=== PATIENT | male | born 2000 | race Caucasian/White ===

== ENCOUNTER 2021-03-11 18:19 | Inpatient (IN) ==
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
[2021-03-11 20:29] LABS: Basophils # (auto) 0.02 K/uL (0-0.2); Basophils % (auto) 0.2 %; Eosinophils # (auto) 0.24 K/uL (0-0.5); Eosinophils % (auto) 2.3 %; Hematocrit (blood only) 40.6 % (42-52); Hemoglobin 14.3 g/dL (14.0-18.0); Immature Granulocytes # (auto) 0.01 K/uL (0.00-0.02); Immature Granulocytes % (auto) 0.1 %; Lymphocytes # (auto) 2.34 K/uL (1.2-3.4); Lymphocytes % (auto) 22.8 %; Mean Corpuscular Hemoglobin 29.3 pg (25-34); Mean Corpuscular Hgb Conc 35.2 g/dL (32-36); Mean Corpuscular Volume 83.2 fL (80-100); Mean Platelet Volume 9.7 fL (7.4-10.4); Monocytes # (auto) 0.78 K/uL (0.11-0.59); Monocytes % (auto) 7.6 %; Neutrophils # (auto) 6.87 K/uL (1.4-6.5); Platelet Count 268 K/uL (130-400); RDW Standard Deviation 42.6 fL (36.4-46.3); Red Blood Count 4.88 M/uL (4.7-6.1); White Blood Count 10.26 K/uL (4.8-10.8)
[2021-03-11 20:45] LABS: Alanine Aminotransferase 15 U/L (12-78); Albumin Level 3.8 gm/dl (3.4-5.0); Aspartate Aminotransferase 14 U/L (15-37); BUN Creatinine Ratio 16.6 (10-20); Blood Urea Nitrogen 13 mg/dl (7-18); Calcium 9.2 mg/dl (8.5-10.1); Carbon Dioxide 28 mmol/L (21-32); Chloride 106 mmol/L (98-107); Creatinine Clr Calc Pharmacy 171.8 ml/min; Est GFR (African American) > 150.0; Est GFR (Non-African American) 130.9; Glucose 101 mg/dl (70-99); Potassium 3.4 mmol/L (3.5-5.1); Sodium 139 mmol/L (136-145)
[2021-03-11 20:55] LABS: Alkaline Phosphatase 75 U/L (45-117); Bilirubin,Total 0.5 mg/dl (0.2-1); Globulin 3.6 gm/dl (2.5-4.0); Total Protein 7.4 gm/dl (6.4-8.2)
[2021-03-11 20:56] LABS: Acetaminophen < 2 ug/ml (10-30); Salicylate < 1.7 mg/dl (2.8-20)
[2021-03-11 21:12] LABS: Influenza A virus by PCR Negative (Neg); Influenza B virus by PCR Negative (Neg); RSV by PCR Negative (Neg); SARS CoV2 RNA(COVID-19) InHosp NEGATIVE (Negative)
[2021-03-11 21:48] LABS: Appearance Urine Clear (Clear); Bilirubin Urine Negative (Negative); Blood Urine Negative (Negative); Color Urine Yellow; Glucose Urine UA Negative (Negative); Ketones Urine Trace (Negative); Leukocyte Esterase Urine Negative (Negative); Nitrite Urine Negative (Negative); Protein Urine Negative (Negative); Specific Gravity Urine 1.025 (1.000-1.030); Urobilinogen Urine Negative (Negative)
[2021-03-11 22:13] LABS: Amphetamines+Metham, Urine Neg (Neg); Barbiturates, Urine Neg (Neg); Benzodiazepine, Urine Neg (Neg); Cocaine, Urine Neg (Neg); MDMA (Ecstacy), Urine Pos (Neg); Methadone, Urine Neg (Neg); Opiate, Urine Neg (Neg); Phencyclidine, Urine Neg (Neg)
[2021-03-11] MEDS ORDERED: PRAZOSIN HCL 1 MG CAP PO ONE (23:03)
[2021-03-11] MEDS ORDERED: MELATONIN 3 MG TAB PO ONE (23:03)
[2021-03-11] MEDS ORDERED: ARIPIprazole SOLN 10 MG/10 ML UDP PO STA (23:03)
[2021-03-11] MEDS ORDERED: AMOXICILLIN 500 MG CAP PO STA (23:03)
[2021-03-11] MEDS ORDERED: traZODone HCL 100 MG TAB PO ONE (23:04)
[2021-03-11] MEDS ORDERED: PANTOprazole 40 MG TAB PO SCH (23:15)
[2021-03-12] MEDS ORDERED: BISMUTH SUBSALICYLATE LIQD 236 ML PO PRN (03:39)
[2021-03-12] MEDS ORDERED: hydrOXYzine HCl 25 MG TAB PO PRN ×2 (03:39)
[2021-03-12] MEDS ORDERED: ALUMINUM/MAGNESIUM SUSP 30 ML UDC PO PRN (03:39)
[2021-03-12] MEDS ORDERED: SODIUM CHLORIDE 0.65% NA SOLN 45 ML (OCEAN) PRN (03:39)
[2021-03-12] MEDS ORDERED: MAGNESIUM HYDROXIDE SUSP 30 ML UDC PO PRN (03:39)
[2021-03-12] MEDS ORDERED: ACETAMINOPHEN 325 MG TAB PO PRN (03:39)
--- NOTE | 2021-03-12 03:59 | Emergency Department Note ---
ED Visit Note Patient signed out to me at change of shift from Dr. Tucker. Patient awaiting final disposition. Patient signed 201 and will be admitted to . .
[2021-03-12] MEDS ORDERED: BENZTROPINE MESYLATE 0.5 MG TAB PO PRN (04:24)
[2021-03-12] MEDS ORDERED: MELATONIN 3 MG TAB PO PRN (05:03)
[2021-03-12] MEDS ORDERED: NON-FORMULARY MEDICATION (Amoxicillin 500 mg tablet) PO SCH (09:00)
[2021-03-12] MEDS ORDERED: SERTRALINE HCL 100 MG TABLET PO SCH (09:00)
[2021-03-12] MEDS ORDERED: DEXMETHYLPHENIDATE 15 MG PO SCH (09:00)
[2021-03-12] MEDS: AMOXICILLIN 500 MG CAP PO SCH ×3 (11:05→20:46)
[2021-03-12] MEDS: SERTRALINE HCL 50 MG TABLET PO SCH (11:05)
[2021-03-12] MEDS: NICOTINE 14 MG/24 HR PATCH TD SCH (11:09)
--- NOTE | 2021-03-12 16:51 | History & Physical ---
Date of Service March 12, 2021 Impression / Recommendations Impression This is an 19-year-old male with a past psychiatric history of ADD, autism, substance-induced psychosis who presented with mood instability and suicidal ideation. (1) Substance induced mood disorder: The patient was admitted to the [facility] ([facility] unit) on q15 min checks (behavioral with suicide precautions) for safety. The patient will participate in group, recreational, and milieu therapies and will be offered additional individual and family sessions as clinically appropriate. The patient's marijuana use suggests problematic substance use. Brief intervention was offered and accepted. Intervention was greater than 5 min in length and included assessing readiness to quit, advice on how to reduce or abstain, and to set a specific goal for this hospitalization. social service worker will also assist in anticipating barriers to sobriety and in problem-solving for solutions to those problems while arranging for referral to appropriate treatment. The patient is in precontemplation stage with regards to transtheoretical model of change. The patient is advised to decrease consumption due to depressant effects and risk of interaction with prescription medications. The patient agreed to consider the option and will be provided with recovery materials to continue to educate self on how to cope with their condition without abusing substances. Marijuana held Focalin held Continue Abilify 10 mg p.o. daily Continue Zoloft 150 mg daily Continue trazodone nightly (2) Suicidal ideations: 03/12/21--patient states that these are resolved after having spent some time on the unit and having gone to group therapy. Unclear what causes these ideations to come and go, will continue to work with patient on identifying triggers. Focalin discontinued Inventory Assets Strengths: supportive family Needs: stability sobriety Risk Factors Assessment Do You Have Access To A Gun?: No Protective Factors Assessment Employed: No Psychiatric History Identifying Data ROZINA OGDEN is a 20-year-old M who currently [place] his mother, has a history of ADD, Autism, Substance induced psychosis, and was admitted on 03/12/21 03:39 on a 201 voluntary commitment for suicidal ideation. Chief Complaint "I was having some suicidal thoughts". History of Present Illness Patient is a 20-year-old male with a past psychiatric history of ADD, autism, substance-induced psychosis, who presents to the emergency department with suicidal ideation. Patient is unable to identify any specific trigger for his suicidal ideation, rather states that he became upset last night and did not know what to do. Furthermore patient unable to state what he is upset about, but lists off losses of family members as a potential reason. Patient states that he lost a [id number] in a car accident approximately 1 month ago as well as losing both of his grandparents approximately 8 years ago. Patient unable to rectify why these losses caused him to feel suicidal. States that in the past he has felt suicidal for unknown reasons. Today, patient reports feeling somewhat improved. He states that his mood is still not where it should be as he has fluctuations in mood swings. He states that often times he will become angry and he is unsure as to why that is. Patient acknowledges previous hallucinations but is denying any current hallucinations at this time. Patient is denying any other psychotic symptoms. he is endorsing smoking large quantities of marijuana which he states helps him with his mood. Patient denies any other substance abuse at this time. Past Psychiatric History Previous Psych History: Patient states that he has been in 20 previous psychiatric inpatient hospitals. Patient states that these hospitalizations are typically in the context of suicidal ideation. Patient has also had multiple med trials both inpatient and outpatient basis. Current Psychiatric Diagnosis: Major Depression Recurrent Outpatient Services: Currently attending outpatient psych services Previous Psych Admissions: 20 Do You Have Access To A Gun?: No History of Previous Suicide Attempt: Yes Describe Attempts in the Past: prior attempts to OD on medical THC, drown self in toilet, hang self Past Medication Trials: Patient reports multiple past medication trials. Reports adverse and poor reaction to Vyvanse medication in the past. Allergies Allergy/AdvReac Type Severity Reaction Status Date / Time bupropion [From Wellbutrin] Allergy Severe seizures Verified 03/11/21 22:28 Home Medications Medication Instructions Recorded Confirmed Type prazosin 1 mg capsule 1 mg PO QPM 09/06/19 03/11/21 History prazosin 2 mg capsule 2 mg PO QPM 09/06/19 03/11/21 History pantoprazole 40 mg tablet,delayed 40 mg PO BID #180 tab 03/21/20 03/11/21 Rx release benztropine 0.5 mg tablet 0.5 mg PO QAM PRN 06/24/20 03/11/21 History dexmethylphenidate 15 mg 25 mg PO QAM 06/24/20 03/11/21 History capsule,extended release [id number] melatonin 10 mg tablet 10 mg PO HS tab 06/24/20 03/11/21 History sertraline 100 mg tablet 150 mg PO QAM tab 06/24/20 03/11/21 History Linzess 145 mcg PO DAILY PRN 10/09/20 03/11/21 History mesalamine 2 g NJ BID PRN 10/09/20 03/11/21 History mesalamine 0.375 gram 1.5 g PO QAM #120 cap 01/29/21 03/11/21 Rx capsule,extended release 24 hr aripiprazole 10 mg tablet 10 mg PO QPM tab 02/12/21 03/11/21 History amoxicillin 500 mg PO TID 03/11/21 03/11/21 History trazodone 200 mg PO HS 03/11/21 03/11/21 History Family History Family History of: Other-List under Comment Family Mental Health History Comment: Doesn't believe there is Alcohol History Hx of Alcohol Use Over the Past 12 Months: No Smoking Use Have You Smoked or Used Tobacco Products in the Last 30 Days: Yes tobacco type: cigarettes Smoking Status: Current every day smoker Smoking packs per day: 0.5 Substance History Hx of Prescription Med Misuse Over the Past 12 Months: No Hx of Over the Counter Med Misuse Over the Past 12 Months: No Hx of Inhalent Misuse Over the Past 12 Months: No Hx of Organic Substance Use Over the Past 12 Months: Yes (Medical Marijuana - "use too much some times") Hx of Illegal Substances/Street Drug Use Over Past 12 Months: No Problems as a Result of Past Substance Use: Sustained Bodily Harm Personal History Living Arrangements: Home Highest Grade Completed: High School Graduate Highest Grade Completed Comment: [employer] Beliefs That Will Affect Care: None Patient History Medical History Acne ADHD Anxiety Autism spectrum disorder Chronic constipation Depression GERD (gastroesophageal reflux disease) Psychosis PTSD (post-traumatic stress disorder) Rectal bleeding Seizure Stomach ulcer Tobacco use Surgical History History of colonoscopy (~04/04/20) History of esophagogastroduodenoscopy (EGD) (~01/09/20) Hx of oral surgery Status post surgery Family History Father Drug abuse Alcohol abuse Mother Drug abuse Alcohol abuse Depression Seizures Grandmother (Maternal) Diabetes Other No family history of adverse response to anesthesia Denies family history of Ovarian cancer Prostate cancer Myocardial infarction Breast cancer Colorectal cancer Social History Smoking Status: Current every day smoker Tobacco Type: Cigarettes Age Started Using Tobacco: 17; packs per day: 0.5; Cigarettes Per Day: 1/2 PPD; Second Hand Exposure: No; Hx Alcohol Use: No Hx Substance Use: Yes (medical marijuana) Preferred Language: [place] Communication Ability: Effective Visual Impairment: No Limitations 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 Beliefs That Will Affect Care: None marital status: Single Current Living Situation: Family Current Living Situation Comment: lives with mom current occupational status: employed current occupation: [employer] Feels Safe at Home: Yes caffeine: Yes during the past year weight has: remained stable Dental Care, Regularly: Yes Physical Activity Frequency: Does not Exercise Seatbelt Use: always Sunscreen Use: Yes Assistive Devices: Glasses Review of Systems Review of Systems: All systems reviewed & are unremarkable except as noted in HPI & below Physical Exam Psychiatric: Orientation: alert, oriented to person and oriented to place Apperance: + disheveled Eye Contact: + fair eye contact Motor Behavior: s teady gait and station Speech: normal rate/rhythm/volume of speech Affect: + labile affect Mood: no dysphoric mood Thought Process: goal directed thought process Thought Content: + preoccupation Suicidal Thoughts: denies suicidal thoughts Homicidal Thoughts: denies homicidal thoughts Hallucinations: no auditory hallucinations Cognition: remote memory grossly intact Estimated Intelligence: + below average estimated intelligence Insight: + limited insight Judgement: + limited judgement Vital Signs (Past 24 Hours): Last Vital Signs Temp 36.9 C 03/12/21 04:47 Pulse 92 H 03/12/21 04:47 Resp 16 03/12/21 04:47 BP 118/73 03/12/21 04:47 Pulse Ox 100 03/11/21 22:48 Exam Statement: A physical exam was performed in the ER prior to admission to the unit by Dr. Jeong. I accept that physical as correct/medical clearance for the inpatient physical exam. Results & Data (U) Laboratory Results Laboratory Results - last 24 hr 03/11/21 03/11/2103/11/21 19:15 19:15 19:15 WBC RBC Hgb Hct MCV MCH MCHC RDW Std Deviation RDW Coeff of Sonia Plt Count MPV Immature Gran % (Auto) Neut % (Auto) Lymph % (Auto) Mcpherson % (Auto) Eos % (Auto) Baso % (Auto) Neut # (Auto) Lymph # (Auto) Mcpherson # (Auto) Eos # (Auto) Baso # (Auto) Immature Gran # (Auto) Sodium Potassium Chloride Carbon Dioxide Anion Gap BUN Creatinine Est Cr Clr Drug Dosing Est GFR ( Amer) Est GFR (Non-Af Amer) BUN/Creatinine Ratio Glucose Calcium Total Bilirubin AST ALT Alkaline Phosphatase Total Protein Albumin Globulin Albumin/Globulin Ratio TSH Urine Color Yellow Urine Appearance Clear Urine pH 7.0 Ur Specific [place] 1.025 Urine Protein Negative Urine Glucose (UA) Negative Urine Ketones Trace H Urine Blood Negative Urine Nitrite Negative Urine Bilirubin Negative Urine Urobilinogen Negative Ur Leukocyte Esterase Negative Salicylates Urine Opiates Screen Neg Ur Methadone, Qual Neg Acetaminophen Urine Barbiturates Neg Ur Phencyclidine (PCP) Neg U Amphetamin/Meth Scrn Neg Urine MDEA Pending MDMA (Ecstasy) Screen Pos H MDMA Pending Urine MDMA Pending U Benzodiazepines Scrn Neg Ur Cocaine Metabolite Neg U Marijuana (THC) Screen Pos H U Marijuana THC Carboxy Pending Ethyl Alcohol mg/dL COVID-19 Eval Order SARS-CoV-2 (PCR) Influenza Type A (PCR) Influenza Type B (PCR) RSV (RT-PCR) 03/11/21 03/11/21 03/11/21 20:09 20:09 20:09 WBC 10.26 RBC 4.88 Hgb 14.3 Hct 40.6 L MCV 83.2 MCH 29.3 MCHC 35.2 RDW Std Deviation 42.6 RDW Coeff of Sonia 14.0 Plt Count 268 MPV 9.7 Immature Gran % (Auto) 0.1 Neut % (Auto) 67.0 Lymph % (Auto) 22.8 Mcpherson % (Auto) 7.6 Eos % (Auto) 2.3 Baso % (Auto) 0.2 Neut # (Auto) 6.87 H Lymph # (Auto) 2.34 Mcpherson # (Auto) 0.78 H Eos # (Auto) 0.24 Baso # (Auto) 0.02 Immature Gran # (Auto) 0.01 Sodium 139 Potassium 3.4 L Chloride 106 Carbon Dioxide 28 Anion Gap 5.0 BUN 13 Creatinine 0.78 Est Cr Clr Drug Dosing 171.8 Est GFR ( Amer) > 150.0 Est GFR (Non-Af Amer) 130.9 BUN/Creatinine Ratio 16.6 Glucose 101 H Calcium 9.2 Total Bilirubin 0.5 AST 14 L ALT 15 Alkaline Phosphatase 75 Total Protein 7.4 Albumin 3.8 Globulin 3.6 Albumin/Globulin Ratio 1.0 TSH 1.300 Urine Color Urine Appearance Urine pH Ur Specific [place] Urine Protein Urine Glucose (UA) Urine Ketones Urine Blood Urine Nitrite Urine Bilirubin Urine Urobilinogen Ur Leukocyte Esterase Salicylates < 1.7 L Urine Opiates Screen Ur Methadone, Qual Acetaminophen < 2 L Urine Barbiturates Ur Phencyclidine (PCP) U Amphetamin/Meth Scrn Urine MDEA MDMA (Ecstasy) Screen MDMA Urine MDMA U Benzodiazepines Scrn Ur Cocaine Metabolite U Marijuana (THC) Screen U Marijuana THC Carboxy Ethyl Alcohol mg/dL COVID-19 Eval Order SARS-CoV-2 (PCR) Influenza Type A (PCR) Influenza Type B (PCR) RSV (RT-PCR) 03/11/21 03/11/21 03/11/21 20:09 20:22 20:22 WBC RBC Hgb Hct MCV MCH MCHC RDW Std Deviation RDW Coeff of Sonia Plt Count MPV Immature Gran % (Auto) Neut % (Auto) Lymph % (Auto) [place]pher[place] % (Auto) Eos % (Auto) Baso % (Auto) Neut # (Auto) Lymph # (Auto) [place] # (Auto) Eos # (Auto) Baso # (Auto) Immature Gran # (Auto) Sodium Potassium Chloride Carbon Dioxide Anion Gap BUN Creatinine Est Cr Clr Drug Dosing Est GFR ( Amer) Est GFR (Non-Af Amer) BUN/Creatinine Ratio Glucose Calcium Total Bilirubin AST ALT Alkaline Phosphatase Total Protein Albumin Globulin Albumin/Globulin Ratio TSH Urine Color Urine Appearance Urine pH Ur Specific [place] Urine Protein Urine Glucose (UA) Urine Ketones Urine Blood Urine Nitrite Urine Bilirubin Urine Urobilinogen Ur Leukocyte Esterase Salicylates Urine Opiates Screen Ur Methadone, Qual Acetaminophen Urine Barbiturates Ur Phencyclidine (PCP) U Amphetamin/Meth Scrn Urine MDEA MDMA (Ecstasy) Screen MDMA Urine MDMA U Benzodiazepines Scrn Ur Cocaine Metabolite U Marijuana (THC) Screen U Marijuana THC Carboxy Ethyl Alcohol mg/dL < 3.0 COVID-19 Eval Order CovFluRsv at [facility] SARS-CoV-2 (PCR) NEGATIVE Influenza Type A (PCR) Negative Influenza Type B (PCR) Negative RSV (RT-PCR) Negative Current Inpatient Medications Current Inpatient Medications: Current Inpatient Medications Acetaminophen (Acetaminophen 325 Mg Tab) 650 mg PO Q4H PRN PRN Reason: Headache or Minor Fever Stop: 04/11/21 03:38 Al Hydrox/Mg Hydrox/Simethicone (Aluminum/Magnesium Susp 30 Ml Udc) 30 ml PO Q4H PRN PRN Reason: GI Upset Stop: 04/11/21 03:38 Amoxicillin (Amoxicillin 500 Mg Cap) 500 mg PO TID MONIQUE Stop: 03/14/21 08:59 Last Admin: 03/12/21 14:40 Dose: 500 mg Documented by: Aripiprazole (Aripiprazole 10 Mg Tab) 10 mg PO HS MONIQUE Stop: 04/11/21 21:59 Benztropine Mesylate (Benztropine Mesylate 0.5 Mg Tab) 0.5 mg PO DAILY PRN PRN Reason: EPS Stop: 04/11/21 04:23 Bismuth Subsalicylate (Bismuth Subsalicylate Liqd 236 Ml) 15 ml PO PRN PRN PRN Reason: Loose Stool Stop: 04/11/21 03:38 Hydroxyzine HCl (Hydroxyzine Hcl 25 Mg Tab) 50 mg PO HSZ PRN PRN Reason: Insomnia Stop: 04/11/21 03:38 Hydroxyzine HCl (Hydroxyzine Hcl 25 Mg Tab) 25 mg PO Q4H PRN PRN Reason: Anxiety Stop: 04/11/21 03:38 Magnesium Hydroxide (Magnesium Hydroxide Susp 30 Ml Udc) 30 ml PO DAILY PRN PRN Reason: Constipation Stop: 04/11/21 03:38 Melatonin (Melatonin 3 Mg Tab) 10 mg PO HS PRN PRN Reason: Sleep Stop: 04/11/21 05:02 Miscellaneous (Remove Nicoderm Patch) 1 ea N/A DAILY@0859 [facility] Stop: 04/11/21 08:58 Last Admin: 03/12/21 11:08 Dose: Not Given Documented by: Miscellaneous (Mesalamine~Order Awaiting Action) 1 ea N/A QS [facility] Stop: 04/11/21 07:59 Last Admin: 03/12/21 10:16 Dose: Not Given Documented by: Nicotine (Nicotine 14 Mg/24 Hr Patch) 14 mg TD [facility] Stop: 04/11/21 08:59 Last Admin: 03/12/21 11:09 Dose: 14 mg Documented by: Prazosin HCl (Prazosin Hcl 1 Mg Cap) 3 mg PO [facility] Stop: 04/11/21 21:59 Sertraline HCl (Sertraline Hcl 50 Mg Tablet) 150 mg PO [facility] Stop: 04/11/21 08:59 Last Admin: 03/12/21 11:05 Dose: 150 mg Documented by: Sodium Chloride (Sodium Chloride 0.65% Na Soln 45 Ml ([place])) 1 - 2 sprays NA PRN PRN PRN Reason: Nasal Dryness/Congestion Stop: 04/11/21 03:38 Trazodone HCl (Trazodone Hcl 100 Mg Tab) 200 mg PO [facility] Stop: 04/11/21 21:59
[2021-03-12] MEDS: ARIPiprazole 10 MG TAB PO SCH (20:46)
[2021-03-12] MEDS: PRAZOSIN HCL 1 MG CAP PO SCH (20:46)
[2021-03-12] MEDS: traZODone HCL 100 MG TAB PO SCH (20:47)
[2021-03-12] MEDS ORDERED: ARIPiprazole 10 MG TAB PO SCH (21:00)
[2021-03-12] MEDS ORDERED: traZODone HCL 100 MG TAB PO SCH (21:00)
[2021-03-12] MEDS ORDERED: PRAZOSIN HCL 1 MG CAP PO SCH ×2 (21:00)
[2021-03-13] MEDS: SERTRALINE HCL 50 MG TABLET PO SCH (09:45)
[2021-03-13] MEDS: AMOXICILLIN 500 MG CAP PO SCH ×3 (09:45→21:24)
[2021-03-13] MEDS: NICOTINE 14 MG/24 HR PATCH TD SCH (09:46)
--- NOTE | 2021-03-13 13:27 | Psychiatric Progress Note ---
Date of Service March 13, 2021 Impression / Recommendations Impression This is an 19-year-old male with a past psychiatric history of ADD, autism, substance-induced psychosis who presented with mood instability and suicidal ideation. (1) Substance induced mood disorder: The patient was admitted to the [facility] ([facility] unit) on q15 min checks (behavioral with suicide precautions) for safety. The patient will participate in group, recreational, and milieu therapies and will be offered additional individual and family sessions as clinically appropriate. The patient's marijuana use suggests problematic substance use. Brief intervention was offered and accepted. Intervention was greater than 5 min in length and included assessing readiness to quit, advice on how to reduce or abstain, and to set a specific goal for this hospitalization. heating worker will also assist in anticipating barriers to sobriety and in problem-solving for solutions to those problems while arranging for referral to appropriate treatment. The patient is in precontemplation stage with regards to transtheoretical model of change. The patient is advised to decrease consumption due to depressant effects and risk of interaction with prescription medications. The patient agreed to consider the option and will be provided with recovery materials to continue to educate self on how to cope with their condition without abusing substances. Marijuana held Focalin held Continue Abilify 10 mg p.o. daily Continue Zoloft 150 mg daily Continue trazodone nightly (2) Suicidal ideations: 03/13/21--patient states that these are resolved after having spent some time on the unit and having gone to group therapy. Patient identifies feeling alone and being reminded of loss as a trigger for his suicidal ideation. Focalin discontinued Inventory Assets Strengths: supportive family Needs: stability sobriety Risk Factors Assessment Do You Have Access To A Gun?: No Protective Factors Assessment Employed: No Interval History Chief Complaint "I feel fine, the groups helped a lot.". Review of Systems Sleep Information Total Hours of Sleep: 8.25 Meal Information Percent Meal Consumed - Breakfast: 100 Percent Meal Consumed - Lunch: 50 Percent Meal Consumed - Dinner: 50 Subjective Subjective Patient was seen & assessed and interval progress reviewed with treatment team nursing and social work Patient reports sleeping fine. Is seen eating most of his meals. No side effects of his medication reported or observed. Patient is denying any marijuana cravings at this time. Regarding his mood patient reports resolution of his suicidal ideation. Furthermore he feels that the group therapy has helped him to remain more stable. Physical Exam Psychiatric Orientation: alert, oriented to person and oriented to place Apperance: + disheveled Eye Contact: + fair eye contact Motor Behavior: steady gait and station Speech: normal rate/rhythm/volume of speech Affect: + labile affect Mood: no dysphoric mood Thought Process: goal directed thought process Thought Content: + preoccupation Suicidal Thoughts: denies suicidal thoughts Homicidal Thoughts: denies homicidal thoughts Hallucinations: no auditory hallucinations Cognition: remote memory grossly intact Estimated Intelligence: + below average estimated intelligence Insight: + limited insight Judgement: + limited judgement Vital Signs (Past 24 Hours) Last Vital Signs Temp 37 C 03/13/21 06:43 Pulse 86 03/13/21 06:44 Resp 16 03/13/21 06:43 BP 102/66 03/13/21 06:44 Pulse Ox 100 03/11/21 22:48 Results & Data ([facility]) Current Inpatient Medications Current Inpatient Medications: Current Inpatient Medications Acetaminophen (Acetaminophen 325 Mg Tab) 650 mg PO Q4H PRN PRN Reason: Headache or Minor Fever Stop: 04/11/21 03:38 Al Hydrox/Mg Hydrox/Simethicone (Aluminum/Magnesium Susp 30 Ml Udc) 30 ml PO Q4H PRN PRN Reason: GI Upset Stop: 04/11/21 03:38 Amoxicillin (Amoxicillin 500 Mg Cap) 500 mg PO TID MONIQUE Stop: 03/14/21 08:59 Last Admin: 03/13/21 09:45 Dose: 500 mg Documented by: Aripiprazole (Aripiprazole 10 Mg Tab) 10 mg PO HS MONIQUE Stop: 04/11/21 21:59 Last Admin: 03/12/21 20:46 Dose: 10 mg Documented by: Benztropine Mesylate (Benztropine Mesylate 0.5 Mg Tab) 0.5 mg PO DAILY PRN PRN Reason: EPS Stop: 04/11/21 04:23 Bismuth Subsalicylate (Bismuth Subsalicylate Liqd 236 Ml) 15 ml PO PRN PRN PRN Reason: Loose Stool Stop: 04/11/21 03:38 Hydroxyzine HCl (Hydroxyzine Hcl 25 Mg Tab) 50 mg PO HSZ PRN PRN Reason: Insomnia Stop: 04/11/21 03:38 Hydroxyzine HCl (Hydroxyzine Hcl 25 Mg Tab) 25 mg PO Q4H PRN PRN Reason: Anxiety Stop: 04/11/21 03:38 Magnesium Hydroxide (Magnesium Hydroxide Susp 30 Ml Udc) 30 ml PO DAILY PRN PRN Reason: Constipation Stop: 04/11/21 03:38 Melatonin (Melatonin 3 Mg Tab) 10 mg PO HS PRN PRN Reason: Sleep Stop: 04/11/21 05:02 Miscellaneous (Remove Nicoderm Patch) 1 ea N/A DAILY@0859 [facility] Stop: 04/11/21 08:58 Last Admin: 03/13/21 09:47 Dose: Not Given Documented by: Miscellaneous (Mesalamine~Order Awaiting Action) 1 ea N/A QS [facility] Stop: 04/11/21 07:59 Last Admin: 03/13/21 09:47 Dose: Not Given Documented by: Nicotine (Nicotine 14 Mg/24 Hr Patch) 14 mg TD QAM [facility] Stop: 04/11/21 08:59 Last Admin: 03/13/21 09:46 Dose: 14 mg Documented by: Prazosin HCl (Prazosin Hcl 1 Mg Cap) 3 mg PO HS MONIQUE Stop: 04/11/21 21:59 Last Admin: 03/12/21 20:46 Dose: 3 mg Documented by: Sertraline HCl (Sertraline Hcl 50 Mg Tablet) 150 mg PO QAM [facility]IQUE Stop: 04/11/21 08:59 Last Admin: 03/13/21 09:45 Dose: 150 mg Documented by: Sodium Chloride (Sodium Chloride 0.65% Na Soln 45 Ml ([place])) 1 - 2 sprays NA PRN PRN PRN Reason: Nasal Dryness/Congestion Stop: 04/11/21 03:38 Trazodone HCl (Trazodone Hcl 100 Mg Tab) 200 mg PO HS MONIQUE Stop: 04/11/21 21:59 Last Admin: 03/12/21 20:47 Dose: 200 mg Documented by: Mental Health & Subst Abuse Tx Psychiatrist Name of Psychiatrist: Meme Beltran Psychiatrist's Date of Appointment with Psychiatrist: 03/20/21 Time of Appointment with Psychiatrist: 1:15 p.m. Psychiatric Appointment Comment: Telehealth Therapist Name of Therapist: Meme Fritz Therapist's Date of Therapist Appointment: 03/24/21 Time of Therapist Appointment: 2:00 p.m. Therapy Appointment Comment: Telehealth Project Archivist Name of Project Archivist: None Post Discharge Appointments Primary Care Physician Name Of Family Doctor: [facility] - Dr. Art Primary Care Provider Appointment Comment: [address], [address], [place] [address] Specialist Name of Specialist: GOPI Ramirez with Dr. Dorantes Phone Number for Specialist: Date of Appointment with Specialist: 03/25/21 Time of Appointment with Specialist: 2:40pm Specialty Appointment Comment: [address] [facility] ([place]) Other #1: Name of Aftercare Appointment: Dr. Melton at [place] for suture removal Date of Aftercare Appointment: 03/14/21 Time of Aftercare Appointment: 1:00pm Aftercare Appointment Comment: As scheduled before hospitalization Contact Information Discharge Discharge Address: [address] [place] [address], [place] [address]
[2021-03-13] MEDS: PRAZOSIN HCL 1 MG CAP PO SCH (21:24)
[2021-03-13] MEDS: traZODone HCL 100 MG TAB PO SCH (21:24)
[2021-03-13] MEDS: ARIPiprazole 10 MG TAB PO SCH (21:25)
[2021-03-14] MEDS: SERTRALINE HCL 50 MG TABLET PO SCH (08:13)
[2021-03-14] MEDS: NICOTINE 14 MG/24 HR PATCH TD SCH (08:16)
--- NOTE | 2021-03-14 12:24 | Discharge Summary ---
Date of Service March 14, 2021 History of Present Illness Patient is a 20-year-old male with a past psychiatric history of ADD, autism, substance-induced psychosis, who presents to the emergency department with suicidal ideation. Patient is unable to identify any specific trigger for his suicidal ideation, rather states that he became upset last night and did not know what to do. Furthermore patient unable to state what he is upset about, but lists off losses of family members as a potential reason. Patient states that he lost a [id number] in a car accident approximately 1 month ago as well as losing both of his grandparents approximately 8 years ago. Patient unable to rectify why these losses caused him to feel suicidal. States that in the past he has felt suicidal for unknown reasons. Today, patient reports feeling somewhat improved. He states that his mood is still not where it should be as he has fluctuations in mood swings. He states that often times he will become angry and he is unsure as to why that is. Patient acknowledges previous hallucinations but is denying any current pickett ucinations at this time. Patient is denying any other psychotic symptoms. he is endorsing smoking large quantities of marijuana which he states helps him with his mood. Patient denies any other substance abuse at this time. Physical Exam Psychiatric Orientation: alert, oriented to person and oriented to place Apperance: + disheveled Eye Contact: + fair eye contact Motor Behavior: steady gait and station Speech: normal rate/rhythm/volume of speech Affect: euthymic affect Mood: no dysphoric mood Thought Process: goal directed thought process Thought Content: + preoccupation Suicidal Thoughts: denies suicidal thoughts Homicidal Thoughts: denies homicidal thoughts Hallucinations: no auditory hallucinations Cognition: remote memory grossly intact Estimated Intelligence: + below average estimated intelligence Insight: + limited insight Judgement: + limited judgement Vital Signs (Past 24 Hours) Last Vital Signs Temp 36.5 C 03/14/21 10:04 Pulse 92 H 03/14/21 10:04 Resp 14 03/14/21 10:04 BP 118/73 03/14/21 10:04 Pulse Ox 100 03/14/21 10:04 Principal Diagnosis Substance-induced mood disorder Psychiatric Data See daily stay summary. In short, safety was maintained, and the patient was cooperative with care. Medication changes included discontinuing Focalin medication and this was tolerated well. Family session was held and safety plan was completed prior to discharge. Day of Discharge Assessment Today the patient voices readiness for discharge. They note improvement in mood and deny thoughts to harm self or others. Thoughts remain organized and they are improved from admission. There is no evidence of psychosis. They agree to take medications as prescribed and keep follow-up appointments. They are stable for discharge to outpatient level of care. Transition of Care Transition Of Care Record: was reviewed with the patient Advance Directives Advance Directives Information Provided: Yes Advance Directives: No Mental Health Advance Directive: No Living Will: No Power of Project Eng: No Advance Directives Reason:: Declines as Mental Health Visit. Risk Factors Assessment Male: Yes : Yes Do You Have Access To A Gun?: No Mental Health Diagnoses: Yes Substance Use Disorders: Yes Previous Psychiatric Hospitalization: Yes Hopelessness: No Smoker: Yes Protective Factors Assessment Employed: No Stable Relationships: Yes Supportive Family: Yes Good Rapport with Provider: Yes Tobacco Cessation at Discharge Tobacco Cessation Medication Prescribed at Discharge: Offered & Pt Refused Total Time Total Time Spent: Greater Than 30 Minutes Total Time Includes: Examination of the patient, Discharge Planning and Medication Reconciliation Discharge Data Lab Results 03/11/21 03/11/21 03/11/21 19:15 19:15 20:09 WBC 10.26 RBC 4.88 Hgb 14.3 Hct 40.6 L MCV 83.2 MCH 29.3 MCHC 35.2 RDW Std Deviation 42.6 RDW Coeff of Sonia 14.0 Plt Count 268 MPV 9.7 Immature Gran % (Auto) 0.1 Neut % (Auto) 67.0 Lymph % (Auto) 22.8 [place] % (Auto) 7.6 Eos % (Auto) 2.3 Baso % (Auto) 0.2 Neut # (Auto) 6.87 H Lymph # (Auto) 2.34 [place] # (Auto) 0.78 H Eos # (Auto) 0.24 Baso # (Auto) 0.02 Immature Gran # (Auto) 0.01 Sodium Potassium Chloride Carbon Dioxide Anion Gap BUN Creatinine Est Cr Clr Drug Dosing Est GFR ( Amer) Est GFR (Non-Af Amer) BUN/Creatinine Ratio Glucose Calcium Total Bilirubin AST ALT Alkaline Phosphatase Total Protein Albumin Globulin Albumin/Globulin Ratio TSH Urine Color Yellow Urine Appearance Clear Urine pH 7.0 Ur Specific [place] 1.025 Urine Protein Negative Urine Glucose (UA) Negative Urine Ketones Trace H Urine Blood Negative Urine Nitrite Negative Urine Bilirubin Negative Urine Urobilinogen Negative Ur Leukocyte Esterase Negative Salicylates Urine Opiates Screen Neg Ur Methadone, Qual Neg Acetaminophen Urine Barbiturates Neg Ur Phencyclidine (PCP) Neg U Amphetamin/Meth Scrn Neg MDMA (Ecstasy) Screen Pos H U Benzodiazepines Scrn Neg Ur Cocaine Metabolite Neg U Marijuana (THC) Screen Pos H Ethyl Alcohol mg/dL COVID-19 Eval Order SARS-CoV-2 (PCR) Influenza Type A (PCR) Influenza Type B (PCR) RSV (RT-PCR) 03/11/21 03/11/21 03/11/21 20:09 20:09 20:09 WBC RBC Hgb Hct MCV MCH MCHC RDW Std Deviation RDW Coeff of Sonia Plt Count MPV Immature Gran % (Auto) Neut % (Auto) Lymph % (Auto) [place] % (Auto) Eos % (Auto) Baso % (Auto) Neut # (Auto) Lymph # (Auto) [place] # (Auto) Eos # (Auto) Baso # (Auto) Immature Gran # (Auto) Sodium 139 Potassium 3.4 L Chloride 106 Carbon Dioxide 28 Anion Gap 5.0 BUN 13 Creatinine 0.78 Est Cr Clr Drug Dosing 171.8 Est GFR ( Amer) > 150.0 Est GFR (Non-Af Amer) 130.9 BUN/Creatinine Ratio 16.6 Glucose 101 H Calcium 9.2 Total Bilirubin 0.5 AST 14 L ALT 15 Alkaline Phosphatase 75 Total Protein 7.4 Albumin 3.8 Globulin 3.6 Albumin/Globulin Ratio 1.0 TSH 1.300 Urine Color Urine Appearance Urine pH Ur Specific [place] Urine Protein Urine Glucose (UA) Urine Ketones Urine Blood Urine Nitrite Urine Bilirubin Urine Urobilinogen Ur Leukocyte Esterase Salicylates < 1.7 L Urine Opiates Screen Ur Methadone, Qual Acetaminophen < 2 L Urine Barbiturates Ur Phencyclidine (PCP) U Amphetamin/Meth Scrn MDMA (Ecstasy) Screen U Benzodiazepines Scrn Ur Cocaine Metabolite U Marijuana (THC) Screen Ethyl Alcohol mg/dL < 3.0 COVID-19 Eval Order SARS-CoV-2 (PCR) Influenza Type A (PCR) Influenza Type B (PCR) RSV (RT-PCR) 03/11/21 03/11/21 20:22 20:22 WBC RBC Hgb Hct MCV MCH MCHC RDW Std Deviation RDW Coeff of Sonia Plt Count MPV Immature Gran % (Auto) Neut % (Auto) Lymph % (Auto) [place] % (Auto) Eos % (Auto) Baso % (Auto) Neut # (Auto) Lymph # (Auto) [place] # (Auto) Eos # (Auto) Baso # (Auto) Immature Gran # (Auto) Sodium Potassium Chloride Carbon Dioxide Anion Gap BUN Creatinine Est Cr Clr Drug Dosing Est GFR ( Amer) Est GFR (Non-Af Amer) BUN/Creatinine Ratio Glucose Calcium Total Bilirubin AST ALT Alkaline Phosphatase Total Protein Albumin Globulin Albumin/Globulin Ratio TSH Urine Color Urine Appearance Urine pH Ur Specific [place] Urine Protein Urine Glucose (UA) Urine Ketones Urine Blood Urine Nitrite Urine Bilirubin Urine Urobilinogen Ur Leukocyte Esterase Salicylates Urine Opiates Screen Ur Methadone, Qual Acetaminophen Urine Barbiturates Ur Phencyclidine (PCP) U Amphetamin/Meth Scrn MDMA (Ecstasy) Screen U Benzodiazepines Scrn Ur Cocaine Metabolite U Marijuana (THC) Screen Ethyl Alcohol mg/dL COVID-19 Eval Order [facility] at [facility] SARS-CoV-2 (PCR) NEGATIVE Influenza Type A (PCR) Negative Influenza Type B (PCR) Negative RSV (RT-PCR) Negative Hospital Course (1) Substance induced mood disorder: The patient [facility] on q15 min checks (behavioral with suicide precautions) for safety. The patient will participate in group, recreational, and milieu therapies and will be offered additional individual and family sessions as clinically appropriate. The patient's marijuana use suggests problematic substance use. Brief intervention was offered and accepted. Intervention was greater than 5 min in length and included assessing readiness to quit, advice on how to reduce or abstain, and to set a specific goal for this hospitalization. broom worker will also assist in anticipating barriers to sobriety and in problem-solving for solutions to those problems while arranging for referral to appropriate treatment. The patient is in precontemplation stage with regards to transtheoretical model of change. The patient is advised to decrease consumption due to depressant effects and risk of interaction with prescription medications. The patient agreed to consider the option and will be provided with recovery materials to continue to educate self on how to cope with their condition without abusing substances. Marijuana held Focalin held Continue Abilify 10 mg p.o. daily Continue Zoloft 150 mg daily Continue trazodone nightly (2) Suicidal ideations: 03/13/21--patient states that these are resolved after having spent some time on the unit and having gone to group therapy. Patient identifies feeling alone and being reminded of loss as a trigger for his suicidal ideation. Focalin discontinued Mental Health & Subst Abuse Tx [facility]iat[facility] - Dr. Beltran Psychiatrist's Date of Appointment with Psychiatrist: 03/20/21 Time of Appointment with Psychiatrist: 1:15 p.m. Psychiatric Appointment Comment: Telehealth Psychiatrist Release of Information: Obtained, Reviewed and Signed Therapist Name of Therapist: [facility] - Dr. Jaswinder Fritz Therapist's Date of Therapist Appointment: 03/24/21 Time of Therapist Appointment: 2:00 p.m. Therapy Appointment Comment: Telehealth Therapist Release of Information: Obtained, Reviewed and Signed Mottler Operator Name of Mottler Operator: None Post Discharge Appointments Primary Care Physician Name Of Family Doctor: [facility] - Dr. Art Primary Care Time of Appointment with PCP: Please follow up as needed Provider Appointment Comment: [address], [address], [place] [address] Primary Care Release of Information: Obtained, Reviewed and Signed Specialist Name of Specialist: GOPI Ramirez with Dr. Silverio Phone Number for Specialist: Date of Appointment with Specialist: 03/25/21 Time of Appointment with Specialist: 2:40pm [id number] [facility] Release of Information: Obtained, Reviewed and Signed Smoking Cessation Counseling Tobacco Cessation Medication Prescribed at Discharge: Offered & Pt Refused Other #1: Name of Aftercare Appointment: Dr. Melton at [facility] for suture removal Date of Aftercare Appointment: 03/14/21 Time of Aftercare Appointment: 1:00pm Aftercare Appointment Comment: As scheduled before hospitalization Contact Information Discharge Discharge Address: [address] [place] [address], [place] [address] Discharge Plan Discharge Items Patient Disposition: Home - Self-Care Reason For Visit: MDD Discharge Diagnosis: substance induced mood disorder Condition on Discharge: Good Health Concerns: None listed Goals: Maintain sobriety Activity: Resume your previous activity Non-emergency contact: Primary Care Provider, Psychiatrist and Therapist Call non-emergency contact if: you have any medication questions and your symptoms worsen Follow-up/Referrals: PCP,NO [Primary Care Provider] - Diet: Regular Addtl Attending Provider Instructions: SPECIAL CARE INSTRUCTIONS: 1. Follow through with your scheduled aftercare appointments. If unable to keep an appointment, please call to reschedule. 2. Take your medication only as prescribed. Medication should not be changed or stopped without the approval of your doctor. In the event of worsening symptoms or concerns about side effects, contact your doctor immediately. 3. Utilize new healthy coping skills, anger management skills, and stress management skills learned during your hospitalization. Journal feelings and process them with a support person. Identify stressors or situations that may result in relapse, deterioration or inappropriate behaviors and develop a plan to deal with those issues. 4. If your coping skills are ineffective and you are in crisis, contact your outpatient providers for direction. If unable to reach your providers, please call the [facility] CRISIS LINE AT , go to the [facility] walk-in center at [address], [address], [place], or go to the closest Emergency Room. 5. Avoid alcohol and un-prescribed drugs. 6. You have been provided with the Mental Health Advance Directives Pamphlet for your review. AFTERCARE APPOINTMENTS: * Please call your insurance company prior to your scheduled appointment to confirm your aftercare providers are covered. Take your insurance information to your appointments. WHO TO CALL AND WHEN: Medical Emergencies: For questions or emergencies related to your hospital stay, please contact the Inpatient Behavioral Health Unit at [phone]. A emergency room tech is on-call 31/05 for the Behavioral Health Unit for emergencies At any time you feel your situation is an emergency, you may also call 911 immediately. Pending Studies at Discharge: No Stand-Alone Forms: My [employer], Smoking Cessation Medications and DC Order Prescriptions: New prazosin 1 mg Capsule 3 mg PO HS Qty: 30 RF: 0 aripiprazole [Abilify] 10 mg Tablet 10 mg PO HS Qty: 30 RF: 0 sertraline 50 mg Tablet 150 mg PO QAM Qty: 30 RF: 0 trazodone 100 mg Tablet 200 mg PO HS Qty: 30 RF: 0 Continued mesalamine [Apriso] 0.375 gram capsule,extended release 24hr 1.5 g PO QAM Qty: 120 RF: 2 benztropine 0.5 mg tablet 0.5 mg PO QAM PRN (Reason: tremors) RF: 0 melatonin 10 mg tablet 10 mg PO HS RF: 0 pantoprazole [Protonix] 40 mg tablet,delayed release (DR/EC) 40 mg PO BID Qty: 180 RF: 3 Linzess 145 mcg capsule 145 mcg PO DAILY PRN (Reason: Constipation) RF: 0 Discontinued dexmethylphenidate 15 mg capsule,ER biphasic 50-50 25 mg PO QAM RF: 0 mesalamine 1,000 mg suppository 2 g MA BID PRN (Reason: ulcerative proctitis) RF: 0 amoxicillin 500 mg tablet 500 mg PO TID RF: 0 Discharge Orders: Discharge Order (Routine); Ordered 03/14/21 Ordered By: Alonso Holloway Admission Data Admit Date/Time: 03/12/21 03:39 Attending Provider: Alonso Holloway Admit Provider: Alonso Holloway Primary Care Provider: PCP,NO Other Interventions: Discharge Summary Assessment (RN) Last Done: 03/14/21 10:04 PSY Interdisciplinary Discharge Planning Last Done: 03/14/21 10:08 Coding Level of Care Code 94977 D/C day mgmt 30 min or < Diagnoses Substance induced mood disorder F19.94 Suicidal ideations R45.851
[2021-03-17 13:31] LABS: MDA negative; MDEA negative; MDMA (Ecstasy) Urine, Confirm negative
[2021-03-19 07:53] LABS: Marijuana Quant, GCMS Urine 950 ng/mL (<5)
== END 2021-03-14 10:55 | disposition home or self-care (01) | DRG 897 ==
LOC: ED 18:19 → 3S 03-12 03:39